=== PATIENT | female | born 1990 | race Caucasian/White ===

== ENCOUNTER → 2020-12-23 16:50 | Observation (INO) ==
[2020-12-23 15:54] LABS: Bacteria,Urine Few per hpf (None-Few); Bilirubin,Urine Negative (Negative); Blood,Urine Moderate (Negative); Clarity,Urine Clear (Clear); Color,Urine Light-Yellow (Yellow); Glucose,Urine (UA) Normal (Normal); Ketones,Urine 40 mg/dL (Negative); Leukocyte Esterase,Urine Negative (Negative); Mucus,Urine Few per lpf (None-Few); Nitrite,Urine Negative (Negative); Protein,Urine Trace mg/dL (Neg-Trace); Squamous Epithelial Cell,Urine Few per hpf (None-Few); Urobilinogen,Urine Normal (Normal); WBC,Urine 0-3 per hpf (0-3)
== END | disposition home or self-care (01) ==
LOC: 1NENULAB
PROVIDERS: ADMIT Advanced Practice Midwife; ATTEND Advanced Practice Midwife

== ENCOUNTER → 2021-01-11 13:26 | Observation (INO) | END | disposition home or self-care (01) | LOC: 1NENULAB | PROVIDERS: ADMIT Advanced Practice Midwife; ATTEND Advanced Practice Midwife ==

== ENCOUNTER 2021-01-21 21:36 | Inpatient (IN) ==
[2021-01-21 19:58] LABS: Basophils % 0.4 %; Eosinophils % 0.2 %; Hematocrit 37.6 % (35.3-44.9); Immature Granulocytes % 1.4 % (0-4); Lymphocytes # 2.1 K/mcL (0.6-4.6); Lymphocytes % 18.4 %; Mean Corpuscular HGB Conc 34.6 g/dL (31.6-35.5); Mean Corpuscular Hemoglobin 31.9 pg (28.0-33.3); Mean Corpuscular Volume 92.2 fL (83.0-100.0); Mean Platelet Volume 9.7 fL (9.4-12.4); Monocytes # 0.8 K/mcL (0.0-1.3); Monocytes % 7.3 %; Neutrophils # 8.2 K/mcL (1.6-8.9); Platelet Count 228 K/mcL (140-400); Red Blood Count 4.08 M/mcL (3.82-4.97); Red Cell Distribution Width 12.8 % (11.5-14.5); Segmented Neutrophils % 72.3 %; White Blood Count 11.3 K/mcL (4.3-11.1)
[~2021-01-21 21:36] MED LIST: EPHEDrine 50 MG/ML VIAL IVP PRN; Epidural Premix (fent/bupiv) 110 ML EP SCH; Famotidine 20 MG/2 ML VIAL IVP PRN; Metoclopramide 10 MG/2 ML VIAL IVP PRN; Naloxone 0.4 MG/ML INJ IVP PRN; Oxytocin 20 units/ LR 1000 mL 20 UNIT/1,000 ML BAG IVC ONE; Ringers Solution, Lactated 1,000 ML IVC SCH; Ringers Solution, Lactated 1,000 ML ONE
[2021-01-21 22:36] LABS: Influenza A PCR Negative (Negative); Influenza B PCR Negative (Negative); Resp. Syncytial Virus PCR Negative (Negative)
[2021-01-21 22:37] LABS: SARS-CoV-2 by PCR (In House) Negative (Negative)
[2021-01-22] MEDS ORDERED: Lanolin 7 G OINT...G. TP PRN (02:39)
[2021-01-22] MEDS ORDERED: Benzocaine/Menthol 56 GM AEROSOL SPRAY TP PRN (02:39)
[2021-01-22] MEDS ORDERED: Ondansetron ODT 4 MG TAB.RAPDIS SL PRN (02:39)
[2021-01-22] MEDS ORDERED: Oxytocin 20 units/ LR 1000 mL 20 UNIT/1,000 ML BAG IVC SCH (02:39)
[2021-01-22] MEDS: Ibuprofen 600 MG TABLET PO SCH ×3 (04:50→22:41)
[2021-01-22] MEDS: Prenatal Vit/FA 1 EACH TABLET PO SCH (08:09)
[2021-01-22] MEDS: Acetaminophen 325 MG TABLET PO SCH ×2 (16:12→22:42)
[2021-01-22] MEDS ORDERED: *HR* HYDROcodone/Acet 5/325 mg TABLET PO PRN (16:58)
[2021-01-22 18:01] LABS: Basophils % 0.2 %; Eosinophils % 0.1 %; Hematocrit 34.4 % (35.3-44.9); Hemoglobin 11.7 g/dL (11.5-15.4); Immature Granulocytes % 1.2 % (0-4); Lymphocytes # 2.6 K/mcL (0.6-4.6); Lymphocytes % 16.3 %; Mean Corpuscular Hemoglobin 31.8 pg (28.0-33.3); Mean Corpuscular Volume 93.5 fL (83.0-100.0); Mean Platelet Volume 10.1 fL (9.4-12.4); Monocytes % 6.3 %; Neutrophils # 12.3 K/mcL (1.6-8.9); Platelet Count 228 K/mcL (140-400); Red Blood Count 3.68 M/mcL (3.82-4.97); Red Cell Distribution Width 13.2 % (11.5-14.5); Segmented Neutrophils % 75.9 %; White Blood Count 16.2 K/mcL (4.3-11.1)
[2021-01-22 22:30] VITALS: O2SAT 99
[2021-01-23 08:12] VITALS: BP 111/64; PULSE 70; TEMP 97.9
[2021-01-23] MEDS: Prenatal Vit/FA 1 EACH TABLET PO SCH (08:55)
[2021-01-23] MEDS: Ibuprofen 600 MG TABLET PO SCH (08:55)
[2021-01-23] MEDS: Acetaminophen 325 MG TABLET PO SCH (08:56)
== END 2021-01-23 10:49 | disposition home or self-care (01) | DRG 768 ==
LOC: 1NENULAB → 1NENUOBS 01-22 00:43
PROVIDERS: ADMIT Advanced Practice Midwife; ATTEND Advanced Practice Midwife